=== PATIENT | female | born 1995 | race Caucasian/White ===

== ENCOUNTER 2018-12-20 07:33 | Day surgery (SDC) | payer BC, SELFPAY ==
[2018-12-04 08:13] VITALS: BMI 25.9
[2018-12-20] VITALS (11 sets, daily range): BP systolic 119–159; BP diastolic 72–94; PULSE 71–109; RESP 10–18; TEMP 36.2–37.4; O2SAT 98–100; BMI 25.9
--- NOTE | 2018-12-20 | PATH_ITS ---
[facility] Accession Number: [id number] . 01 Material submitted: . peritoneum - PERITONEAL BIOPSIES . 02 Diagnosis: Peritoneal Biopsies: Portions of fibromuscular and fibroconnective tissue with foci of endometriosis with metaplastic features (tubal metaplasia). Negative for atypia or malignancy. [facility]/12/21/2018 . 02 Electronically signed: . Gaye Moreno MD, Pathologist NPI- [id number] . 01 Gross description: . Received in formalin, labeled peritoneal biopsies, are two pieces of givens-pink rubbery tissue (piece #1- 0.8 x 0.7 x 0.4 cm; piece #2- 0.9 x 0.8 x 0.3 cm). The resection margins are inked blue. Each piece is serially sectioned and entirely submitted in cassettes A1 and A2, respectively. ([id number]) /[facility] . 02 Pathologist provided ICD-10: N80.9 . 02 CPT . 378253 Performed at: 01 [facility] [address] [facility], [place], [place] [id number] MD Erik Anne MD Phone: [phone] Performed at: 02 [facility] [address] [place], [place] [id number] MD Annie Killian MD Phone: [phone]
--- NOTE | 2018-12-20 08:06 | SUR.OPER ---
Lithotomy on padded OR bed, head on pillow, arms secured on padded arm boards at <90 degrees abduction. Legs secured in padded yellow fins stirrups.
[2018-12-20] MEDS: LACTATED RINGERS 1,000 ML 100 ML IV (08:15)
--- NOTE | 2018-12-20 08:37 | PM.PREOP ---
Pre-operative Note Interval Note History & Physical reviewed/Exam performed by Physician: Yes Changes to H&P: No
--- NOTE | 2018-12-20 09:03 | SUR.OPER ---
patient voided preop
[2018-12-20] MEDS: BUPIVACAINE 0.5% W/ EPI (PF) VIAL 30 ML INJ (09:18)
--- NOTE | 2018-12-20 09:18 | SUR.OPER ---
DONTA IUD FROM DR ROWE OFFICE [id number] EXP JUN 2020
--- NOTE | 2018-12-20 09:46 | PM.OP.1 ---
Operative Date/Time/Diagnoses Date of procedure: 12/20/18 Time of procedure: 09:47 Pre-op diagnosis: Dysmenorrhea and pelvic pain Post-op diagnosis: same Procedure & Clinicians Procedure: Laparoscopy with resection of areas of presumed endometriosis in the posterior cul-de-sac. Drainage of follicular and hemorrhagic cyst of the left ovary. Placement of Kyleena IUD. Same procedure as scheduled: Yes Indications: Patient with dysmenorrhea and pelvic pain with presumed endometriosis. Surgeon: Zhane Soares Click Yes if Unassisted: Yes Anesthesia Type: General Operative Notes Findings: Two areas of presumed endometriosis in the posterior cul-de-sac that were resected. A hemorrhagic and follicular cyst drained on the left ovary. Possible endometriosis on the posterior fundal uterus that were cauterized. No other areas of endometriosis. Normal liver, normal appearing intestines, no internal hernias, no scar tissue, appendix is mostly retroperitoneal without abnormalities. Retroverted uterus. Uterus sounded to approximately 8 cm. IUD strings were cut to 4 cm. Closure Type: primary Specimen(s): other (Biopsies of the perineum) Estimated Blood Loss (mL): 5 Blood products transfused: none Procedure in detail: Patient was brought to the operating room where she underwent general anesthesia. She was placed in low yellowfin stirrups and prepped and draped in usual sterile fashion. Pulsatile stockings were in place and functional. Warming was in place. No antibiotics were indicated. A check system was reviewed with the staff in the room prior to beginning the case. A single-tooth tenaculum was placed on the anterior lip of the cervix and the cervix dilated to #6 Hegar dilator. The Katya uterine manipulator was placed and balloon inflated with 3 mL of air. The area of the incisions were injected with half percent Marcaine with epinephrine. An incision was made in the umbilicus with a scalpel and the Verres needle placed in the abdomen. Confirmation of correct placement of the needle was performed by withdrawing on the syringe and then allowing fluid to fall freely through the needle. The abdomen was insufflated to 4 L of CO2. A 5 mm trocar was placed under direct visualization. 2 other 5 mm trochars were placed in the right and left lower quadrant under direct visualization after incising the skin. There did not appear to be any damage with placement of the trocars. 10 cc of Marcaine were placed in the area of biopsies. The area spot of presumed endometriosis were grasped and resected with cautery attached to the scissors set at 40 w coag. The 2 biopsies were sent to pathology. Areas of possible endometriosis or decidualization on the posterior fundal aspect of the uterus were cauterized. Adequate hemostasis was noted. The CO2 was allowed to escape from the abdomen. The trochars were removed. Skin was closed with 4-0 monocryl. The uterine manipulator was removed and the single-tooth tenaculum replaced on the cervix. The uterus was sounded to 8 cm. The Kyleena IUD was placed without difficulty. The strings were cut to 4 cm. The patient went to recovery room in good condition. Complications: none Condition: stable Disposition: same day surgery Plan for aftercare: Follow-up in 1 week for suture removal.
[2018-12-20] MEDS: fentaNYL 100 MCG/2 ML INJ 50 MCG IV ×2 (10:13→10:22)
--- NOTE | 2018-12-20 10:17 | SUR.PHASEI ---
Gradually awake, c/o pain, medicated with fentanyl.
[2018-12-20] MEDS: OXYCODONE/ACETAMINOPHEN 5/325 TABLET 1 TAB PO ×2 (10:24→11:04)
--- NOTE | 2018-12-20 11:08 | SUR.PHASEII ---
pt arrived to phase II via stretcher. pt sitting up and drinking water. 3 abd bandaids observed to be c/d/i. fatemeh-pad observed to have scant amount of red blood. pt denies any nausea at this time. Pt family brought to bedside. Bed in lowest position. pt appears comfortable at this time. VSS.
--- NOTE | 2018-12-25 15:22 | PM.GYNHP.1 ---
History of Present Illness Reason for admission: pelvic pain Narrative: Lizbet Lazar is a 23 year old female requesting laparoscopy to see and treat if she has endometriosis causing her pelvic pain. [facility] Medical History (Updated 12/25/18 @ 15:29 by Zhane Soares MD) Bilateral ovarian cysts (Acute) Dysmenorrhea (Acute) Pelvic pain (Acute) Social History household members: significant other Smoking Status: Never smoker Social History household members: significant other Smoking Status: Never smoker Meds Home Medications Medication Instructions Recorded Confirmed Type No Known Home Medications 10/26/18 12/04/18 History oxycodone-acetaminophen [Percocet] 2 tab PO Q4-6H PRN #30 tab 12/20/18 Rx Allergies Allergy/AdvReac Type Severity Reaction Status Date / Time Latex, Natural Rubber AdvReac Intermediate Redness of Verified 12/20/18 08:29 Skin Review of Systems Review of Systems Patient is a 23 year old P0 who comes in complaining of 1 year of painful menses, intermittent lower abdminal pain and ovarian cysts. Patient started her menses at age 10. Her periods are regular every 3 weeks. She bleeds for 3-4 days and on a heavy day changes her pad every 2 hours. Patient tried OCPs including, progesterone only, but had nausea, bloating, fatigue and worsening depression so was unable to continue. She has tried NSAIDs without relief. She had US showing ovarian cysts but resolution of cysts without improvement in symptoms. Patient is unable to exercise due to pain. Patient is unaware of any family history of endometriosis. All systems reviewed & are unremarkable except as noted in HPI and below Exam Vital Signs (past 8 hours): Oxygen Delivery Method Room Air Narrative Exam Narrative: On physical exam the patient's HEENT exam is within normal limits. Lungs are clear to auscultation and percussion. Heart is regular rate and rhythm, no S3-S4 or murmurs. Abdomen is soft, nontender. Pelvic exam was not repeated. Extremities without edema and nontender. Ultrasound performed at [facility] on 10/23/2018 showed uterus retroverted 6.9 x 4.6 x 3.7 cm. Thin endometrium. Right ovary normal left ovary with 2 simple cysts 1 measuring 3.7 x 3.1 x 2.3 the other 2 cm which showed a resolution of a complex right ovarian cyst seen on 09/04/2018. New left ovarian simple cyst. Discussed options with the patient. She feels she is unable to use hormones to suppress ovarian cysts due to side effects. She would like to find out if she does have endometriosis and treat if found. Discussed laparoscopy. Risk of damage to internal structures such as bowel, bladder, ureters discussed. Discussed that even if she has endometriosis the that I can remove she will continue to have trouble with endometriosis as we do not have a cure. Risk of infection. Risk of complication from medication. Discussed that she might be able to tolerate a Kyleena IUD and we could put it in at the time of the surgery. This would decrease her periods and dysmenorrhea. Discussed the risks of placement of IUD including infection, perforation. The consent form for laparoscopy was signed with the patient. Postop discomfort from surgery was discussed with the patient. Like cramping and light bleeding up to 12 weeks after placement of the IUD was discussed. Assessment & Plan (1) Dysmenorrhea: Current visit: No Status: Acute (2) Pelvic pain: Current visit: No Status: Acute Assessment & Plan narrative: Patient with dysmenorrhea and pelvic pain requesting laparoscopy to determine if there is endometriosis in treat if present. Patient is agreeable to trying a Kyleena IUD to be placed at the time of surgery to help with postoperative dysmenorrhea. Time Spent With Patient Time with patient: less than 15 minutes
== END 2018-12-20 11:58 | disposition home or self-care (01) ==
PROVIDERS: Visit Provider Specialist
PROC: 0U5B4ZZ Destruction of Endometrium, Percutaneous Endoscopic Approach (ICD-10-PCS; CPT 58662; principal; 2018-12-20 08:45)
PROC: (CPT 58662; 2018-12-20 08:45)
DX: N94.6 Dysmenorrhea, unspecified (principal); R10.2 Pelvic and perineal pain; N83.02 Follicular cyst of left ovary; Z30.430 Encounter for insertion of intrauterine contraceptive device
CPT/HCPCS: 58662; 49322; 58300; J1100; J1885; J2250; J2405; J2704; J3010; J7296

== ENCOUNTER → 2021-11-26 15:31 | Outpatient (CLI) | payer OTHER, MEDICAID, SELFPAY ==
[2021-11-26 16:45] LABS: COVID19 -Nasal RAPID Negative (Negative)
== END ==
PROVIDERS: PCP Specialist; Visit Provider Specialist
DX: Z20.822 Contact with and (suspected) exposure to COVID-19 (principal); Z01.812 Encounter for preprocedural laboratory examination
CPT/HCPCS: 87635

== ENCOUNTER 2021-11-27 06:35 | Day surgery (SDC) | payer OTHER, MEDICAID, SELFPAY ==
[2021-11-24 12:12] VITALS: BMI 29.0
[2021-11-27] VITALS (8 sets, daily range): BP systolic 137–153; BP diastolic 78–94; PULSE 73–103; RESP 12–29; TEMP 36.6–36.7; O2SAT 94–100; BMI 29.0
--- NOTE | 2021-11-27 | PATH_ITS ---
[facility] Accession Number: [id number] . 01 Material submitted: . peritoneum - PERITONEAL BIOPSY . 01 Clinical history: . SDC ENDOMETRIOSIS, UNSPECIFIED . 01 Diagnosis: Peritoneum, Biopsy: Fibroadipose tissue with involvement by endometriosis. Negative for malignancy. [facility] 12/02/2021 1739 Local . 01 Electronically signed: . Bettye Thomason MD, Pathologist NPI- [id number] . 01 Gross description: . PERITONEAL BIOPSY: Received in formalin is 1 piece of SEGMENT OF SKIN measuring 1.2 x 0.5 x 0.3 cm which is inked, serially sectioned and submitted in toto in 1 cassette. /QBJ 11/29/2021 2309 Local . 01 Pathologist provided ICD-10: N80.9 . 01 CPT . 885931 Specimen Comment: A courtesy copy of this report has been sent to [phone] Performed at: 01 [facility] [address] [place] [address] [address] [facility][note 3], [place], [place] [id number] MD Erik Anne MD Phone: [phone]
[2021-11-27] MEDS: LACTATED RINGERS 1,000 ML 100 ML IV ×2 (07:10→08:51)
--- NOTE | 2021-11-27 07:31 | PM.PREOP ---
Pre-operative Note COVID-19 COVID-19 status: Negative Result date/Date tested (Pos, Neg/Pending): 11/26/21 Criteria for continued procedure: Expected advancement of disease process Interval Note History & Physical reviewed/Exam performed by Physician: Yes Changes to H&P: Yes H&P completed within 30 days and has changed as indicated here:: Patient is requesting removal of her IUD. Consent form addition was initialed by patient
--- NOTE | 2021-11-27 08:28 | SUR.OPER ---
Lithotomy on padded OR bed, head on pillow, arms secured on padded arm boards at <90 degrees abduction. Legs secured in padded yellow fins stirrups.
[2021-11-27] MEDS: BUPIVACAINE 0.5% (PF) 30 ML, EPINEPHrine 0.15 MG INJ (08:34)
--- NOTE | 2021-11-27 08:47 | P.OP_ITS ---
Operative Date/Time/Diagnoses Date of procedure: 11/27/21 Time of procedure: 08:47 Pre-op diagnosis: Perineal endometriosis with increasing pain. Patient requesting removal or of her IUD. Post-op diagnosis: same Procedure & Clinicians Procedure: Laparoscopy with resection of endometriosis and removal of IUD Same procedure as scheduled: Yes Indications: Known peritoneal endometriosis with increasing pelvic pain and cramping Surgeon: Zhane Soares Manager [employer]: Venkat Soriano Click Yes if Unassisted: No Anesthesia Type: General Operative Notes Findings: Perineal endometriosis most notably in the right ovarian fossa. Diffuse hyperemia. Normal appearing ovaries. Retrocecal appendix. Normal bowel surface, normal liver edge. No evidence of adhesions or internal hernias. Closure Type: primary Specimen(s): other (Peritoneal biopsy) Estimated Blood Loss (mL): 5 Procedure in detail: Patient was brought to the operating room where she underwent general anesthesia. She was placed in low yellowfin stirrups and prepped and draped in usual sterile fashion. Pulsatile stockings were in place and functional. Warming was with blankets. A check system was reviewed with staff in the room prior to beginning the case. A single-tooth tenaculum was placed on the anterior lip of the cervix. The IUD strings were grasped and the IUD removed.The cervix was dilated to #6 Hegar dilator. The Zumi uterine manipulator was placed and balloon inflated with 3 mL of air. The area of the incisions were injected with half percent Marcaine with epinephrine. An incision was made in the umbilicus with a scalpel and the Verres needle placed in the abdomen. The abdomen was insufflated to 3 L of CO2. A 5 mm trocar was placed under direct visualization. 2 other 5 mm trochars were placed in the right and left lower quadrant under direct visualization after incising the skin. There did not appear to be any damage with placement of the trocars. An area of endometriosis of the peritoneum in the right ovarian fossa was grasped and excised with monopolar cautery scissors. The tissue was sent to pathology. Adequate hemostasis was noted. The abdomen was irrigated with saline. The CO2 was allowed to escape from the abdomen. The trochars were removed. Skin was closed with 4-0 monocryl. The patient went to recovery room in good condition. Complications: none Post-operative Condition: stable Disposition: same day surgery Plan for aftercare: Home when awake and stable.
[2021-11-27] MEDS: fentaNYL 100 MCG/2 ML INJ IV ×2 (08:49→08:59)
[2021-11-27] MEDS: ONDANSETRON 4 MG/2 ML INJ IV ×2 (08:49→09:24)
[2021-11-27] MEDS: KETOROLAC 30 MG/ML VIAL IV (08:55)
[2021-11-27] MEDS: OXYCODONE/ACETAMINOPHEN 5/325 TABLET 1 TAB PO ×2 (09:05→09:24)
[2021-11-27] MEDS: LORazepam 2 MG/ML INJ 0.25 MG IV (09:10)
== END 2021-11-27 10:04 | disposition home or self-care (01) ==
PROVIDERS: PCP Specialist; Referring Provider Specialist; Visit Provider Specialist
PROC: 0U5B4ZZ Destruction of Endometrium, Percutaneous Endoscopic Approach (ICD-10-PCS; CPT 58662; principal; 2021-11-27 07:45)
DX: N80.3 Endometriosis of pelvic peritoneum (principal); N94.6 Dysmenorrhea, unspecified; Z30.432 Encounter for removal of intrauterine contraceptive device
CPT/HCPCS: 58662; 58301; J0171; J1885; J2060; J2250; J2405; J3010